=== PATIENT | male | born 1970 | race Caucasian/White ===

== ENCOUNTER → 2016-12-02 | Outpatient (CLI) | payer OTHER ==
[~2016-12-02] MED LIST: ATOR-24 PO; FLNIN NAE; LEVO1TAB35 PO; OMEG10007 PO; ONDA4TAB4 PO; OXYC1TAB3 PO; SERT1TAB71 PO
[2016-12-02 13:53] LABS: ALB/GLOB RATIO 1.2 (0.9-2); ALKALINE PHOSPHATASE 58 U/L (45-117); ALT/SGPT 41 U/L (12-78); AST/SGOT 25 U/L (15-37); BLOOD UREA NITROGEN 20 mg/dl (7-18); BUN/CREATININE RATIO 14.6 (10-20); CALCIUM 9.3 mg/dl (8.5-10.1); CARBON DIOXIDE 28 mmol/L (21-32); CHLORIDE 108 mmol/L (98-107); CHOLESTEROL 201 mg/dl (0-200); CHOLESTEROL/HDL RATIO 5.4; GLUCOSE 94 mg/dl (70-99); HDL CHOLESTEROL 37 mg/dl; LDL CHOLESTEROL CALCULATED 132 mg/dl; POTASSIUM 3.6 mmol/L (3.5-5.1); SODIUM 143 mmol/L (136-145); TRIGLYCERIDES 161 mg/dl (0-150); VERY LOW DENSITY LIPOPROT CALC 32 mg/dl
== END | disposition home or self-care (01) ==
LOC: C.LABPBG 07:43
PROVIDERS: ATTEND Nurse Practitioner Family
DX: E78.00 Pure hypercholesterolemia, unspecified (principal); R73.9 Hyperglycemia, unspecified; I10 Essential (primary) hypertension

== ENCOUNTER → 2017-06-11 | Outpatient (CLI) | payer OTHER ==
[2017-06-11 12:30] LABS: BASO % 1.1 %; BASO ABS # 0.07 K/uL (0-0.2); COMPLETE YES; EOS % 8.9 %; HEMATOCRIT 45.1 % (42-52); IG% 0.2 %; LYMPH % 32.4 %; LYMPH ABS # 1.99 K/uL (1.2-3.4); MEAN CORPUSCULAR HEMOGLOBIN 31.2 pg (25-34); MEAN CORPUSCULAR HGB CONC 33.9 g/dl (32-36); MEAN PLATELET VOLUME 10.4 fL (7.4-10.4); MONO % 9.4 %; PLATELET COUNT 333 K/uL (130-400); WHITE BLOOD COUNT 6.15 K/uL (4.8-10.8)
[2017-06-11 12:58] LABS: ALT/SGPT 28 U/L (12-78); BLOOD UREA NITROGEN 17 mg/dl (7-18); BUN/CREATININE RATIO 12.7 (10-20); CALCIUM 9.2 mg/dl (8.5-10.1); CARBON DIOXIDE 29 mmol/L (21-32); CHLORIDE 109 mmol/L (98-107); CHOLESTEROL 201 mg/dl (0-200); GLUCOSE 99 mg/dl (70-99); POTASSIUM 3.8 mmol/L (3.5-5.1); SODIUM 142 mmol/L (136-145); TRIGLYCERIDES 158 mg/dl (0-150); VERY LOW DENSITY LIPOPROT CALC 32 mg/dl
[2017-06-11 13:01] LABS: ALB/GLOB RATIO 1.1 (0.9-2); ALKALINE PHOSPHATASE 65 U/L (45-117); AST/SGOT 18 U/L (15-37); CHOLESTEROL/HDL RATIO 5.4; HDL CHOLESTEROL 37 mg/dl; LDL CHOLESTEROL CALCULATED 132 mg/dl
[2017-06-11 13:39] LABS: ESTIMATED AVERAGE GLUCOSE 108 mg/dl; HA1C FLAG Normal (Normal)
== END | disposition home or self-care (01) ==
LOC: C.LABPBG 09:31
PROVIDERS: ATTEND Nurse Practitioner Family
DX: F32.9 Major depressive disorder, single episode, unspecified (principal); E78.00 Pure hypercholesterolemia, unspecified; R73.9 Hyperglycemia, unspecified; K21.9 Gastro-esophageal reflux disease without esophagitis; I10 Essential (primary) hypertension

== ENCOUNTER → 2017-09-03 | Outpatient (CLI) | payer OTHER ==
[~2017-09-03] VITALS: Ht 170.2 cm; Wt 81.2 kg
[2017-09-03 14:37] VITALS: BP 147/88; PULSE 99; Ht 170.2 cm; Wt 81.2 kg
== END | disposition home or self-care (01) ==
LOC: C.NEUR 14:02
PROVIDERS: ATTEND Internal Medicine Pulmonary Disease
DX: R51 Headache (principal); I10 Essential (primary) hypertension; R06.83 Snoring; F32.9 Major depressive disorder, single episode, unspecified; K21.9 Gastro-esophageal reflux disease without esophagitis; R73.9 Hyperglycemia, unspecified

== ENCOUNTER → 2017-10-01 | Outpatient (CLI) | payer OTHER ==
--- NOTE | 2017-10-02 06:08 | PAP/PSG TECHNICIAN REPORT ---
[facility] Press Operator Meat Polysomnogram Report Study name: None Report date: 10/02/2017 Study date: 10/01/2017 Referring Physician: Oneil Hurst CRNP Name: GIANFRANCO ORTEGA Interpreting Physician: Ambrosio Du M.D. Date of : 1970 Press Operator Meat: Kailee Stinson, PSGT. Sex: Male Age: 46 StudyType: PSG Weight: 179 lbs Height: 46 years, Height 5' 7" Neck Circum:16 inches BMI: 28.03 Medications: Atrovastatin 80 mg, Fenofibrate 145 mg, Sertraline HCI 50 mg, Losartan Potassium 25 mg, Neomycin/Polymyxin HC 1% ear drops, as needed. Patient History 46 year old male here for a baseline sleep study to determine if SALLY is a factor for morning headaches, snoring and some dream enactment behavior's=6, Neck =16 inches. Room # 5. Parameters Monitored NPSG: E1-M2, E2-M1, Fp1-M2, Fp2-M1, F3-M2, F4-M2, F4-M1, C3-M2, C4-M2, C4-M1, O1-M2, O2-M2, O2-M1, T3-M2, T4-M1, P3-M2, P4-M1, CHIN1, CHIN2, HR, EKG, Legs, PFLOW, SNOR, FLOW, CFLOW, Tidal Volume, THOR, ABDO, SpO2, PLTH, CPRESS, ETCO2 Wave, ETCO2, pH Sleep Architecture Sleep Stages Time at Lights Off 10:59:10 PM STAGES Time (min.) TST (%) Time at Lights On 5:13:40 AM Wake 325.5 -- Total Recording Time (TRT) 374.50 min. N1 14.0 29 Total Sleep Period (TSP) 312.0 min. N2 21.5 44 Total Sleep Time (TST) 49.0min. N3 13.5 28 Awake Time 325.5 min. REM 0.0 0 Wake after Sleep Onset 279.0 min. Sleep Efficiency (SE) 13 % Sleep Onset Latency (TRISHA) 46.5 min. Number of Stage 1 Shifts None Awakenings 13 Stage Changes 33 Number of REM periods N/A REM 0.0 0 REM Latency NONE min. NREM 49.0 100 Body Position Analysis Supine Right Left Side Prone Vertical Total Sleep Time (min.) 232.7 23.5 3.5 26.97 35.1 6.2 Total Sleep Time (%) 42% 48% 7% 55 3% N/A% Total Sleep Time REM (min.) 0.0 0.0 0.0 None 0.0 0.0 Total Sleep Time NREM (min.) 20.5 23.5 3.5 None 1.5 0.0 Intermittent Wake (min.) 212.2 43.8 29.7 None 33.6 6.2 Total Sleep Period (%) 69% None None None None None Arousals Myoclonus (PLM) * Events Count Index Events Count Index Spontaneous 30 37 Events Awake (PLMW) 0 0.0 Respiratory 4 4.9 Events Asleep w/ Arousal (PLMA) 1 1.2 PLM 1 1 Events Asleep w/o Arousal (PLMS) 20 24.5 Snoring 2 2 Total Asleep 21 25.7 Total 37 45 Total 21 3 Respiratory Analysis * CA OA MA CH H RERA Total Count 0 0 0 0 12 0 12 Index 0.0 0.0 0.0 0 14.7 0 14.7 Mean Duration 0.0 0.0 0.0 0.00 15.0 0.0 15.0 Longest Duration 0.0 0.0 0.0 0.00 0.0 0.0 22.1 Respiratory Event Summary Total Supine ~Supine Right Left Prone REM NREM Apneas Count 0 0 0 0 0 0 N/A 0 Index 0.0 0 0 0.0 0.0 0 N/A 0 Hypopneas (4% Desat) Count 12 1 11 11 0 0 N/A 12 Index 14.7 2.9 23 28.1 0.0 0.0 N/A 14.7 Apneas & All Hypopneas Count 12 1 11 11 0 0 N/A 12 Index 14.7 3 23 28 0 0 N/A 14.7 Respiratory Events (Teacher Drama+All Hyp+RERA) Count 12 1 11 11 0 0 N/A 12 Index 14.7 3 23 28.1 0.0 0.0 N/A 14.7 Respiratory Related Arousal Count 4 1 3 3 0 0 N/A 4 Index 4.9 3 6 8 0 0 N/A 5 Snoring Analysis Supine Right Left Prone REM NREM Total Snore duration 0.6 min Snores count 12 11 0 0 N/A 23 23 Snore mean duration 1.6 Sec Snores index 35 28 0 0 N/A 28.2 28.2 TST with snoring (%) 1.3% Desaturation Event Summary: Minimum %SpO2 Event Count Mean/Min/Max Duration(sec.) Desaturation Index % Time In Bed > 90 16 23.9 / 10.0 / 58.8 2.8 94.9 86 - 90 1 13.3 / 13.3 / 13.3 3.3 5.1 81 - 85 0 N/A 0.0 0.0 76 - 80 0 N/A 0.0 0.0 71 - 75 0 N/A 0.0 0.0 66 - 70 0 N/A 0.0 0.0 61 - 65 0 N/A 0.0 0.0 56 - 60 0 N/A 0.0 0.0 51 - 55 0 N/A 0.0 0.0 < 50 0 N/A 0.0 0.0 Total REM NREM Awake <50% 0.0 min. 0.0 min. 0.0 min. 0.0 min. 51 - 60% 0.0 min. 0.0 min. 0.0 min. 0.0 min. 61 - 70% 0.0 min. 0.0 min. 0.0 min. 0.0 min. 71 - 80% 0.0 min. 0.0 min. 0.0 min. 0.0 min. 81 - 90% 18.5 min. 0.0 min. 4.7 min. 13.8 min. 91 - 100% 342.8 min. 0.0 min. 44.3 min. 298.5 min. Average 93 0 92 93 Minimum SpO2 84 N/A 84 84 Desaturation Event Index 2.6 0.0 19.6 0.0 # Desat. Events below 89% 10 N/A 10 0 Time(%) with Saturation below 89% 1.0 0.0 0.4 0.6 Time(min.) with Saturation below 89% 3.4 0.0 1.4 2.1 Time (mins) REM (mins) NREM (mins) % of TST SpO2 Below 90% 14 N/A N14 5.5 SpO2 Below 88% 4 0 0 1 Heart Rate Analysis Min (bpm) Max (bpm) Average (bpm) Awake 59 155 79 NREM 59 94 68 REM N/A N/A N/A Overall 59 94 68 Supplemental O2 Values Minimum O2 level: None Value Start Time End Time Press Operator Meat Comments PSG Study Mr. Ortega slept in the right, left, supine and prone positions. No cardiac arrhythmia or PLM's noted. No bruxism noted. Snoring was noted and scored as a 2 on a scale of 1 through 5. (0=no snoring, 5=snoring loud enough to be heard through a closed door or down the amanda way) awoke to use the restroom one times during the night. Mr. Ortega stated, I did not sleep as well as I do when I am in my own bed, I could not relax with the camera "watching me". The final report will be interpreted and signed by a sleep physician. The completed physician report will then be placed in the patient medical record. Patient did not sleep much, he stated that he could not relax with the camera on and the tech watching him. Therapy (cm H2O) 0 TIB (min.) 374.5 TST (min.) 49.0 Sleep Onset (min.) 46.5 REM Onset From Sleep (min.) NONE Sleep Efficiency % 13 Wakefulness (%) 87 Wakefulness (min.) 325.5 NREM 1 (%) 29 NREM 1 (min.) 14.0 NREM 2 (%) 44 NREM 2 (min.) 21.5 NREM 3 (%) 28 NREM 3 (min.) 13.5 REM (%) 0 REM (min.) 0.0 # Arousals 37 Arousal Index 45 # Snore 23 Snore Index 28.2 AHI 14.7 AHI Supine 3 AHI Non-Supine 23 NREM AHI 14.7 REM AHI N/A RDI 14.7 # Obstructive Apnea 0 # Central Apnea 0 # Mixed Apnea 0 # Hypopneas 12 RERAs 0 Total Respiratory Events 13 Time Below SpO2 89% (min.) 1.4 Mean NREM SpO2 (%) 92 Mean REM SpO2 (%) N/A Mean Sleep SpO2 (%) 92 Min NREM SpO2 (%) 84 Min REM SpO2 (%) N/A Position Supine (min.) 232.7 Position Non-supine (min.) 28.5 LM Index Sleep 25.7 LM Index NREM 25.7 LM Index REM N/A Mean Heart Rate (bpm) 68 Min Heart Rate (bpm) 59
--- NOTE | 2017-10-06 08:36 | POLYSOMNOGRAPH REPORT ---
CLINICAL DATA: A 46-year-old male with BMI of 28, referred by Oneil Hurst and myself for snoring, morning headaches, fatigue along with dream enactment behavior. SLEEP ARCHITECTURE: Total sleep period was 312 minutes. Total sleep time was only 49 minutes. This was all non-REM sleep. Sleep latency was 46.5 minutes. Wake after sleep onset was 279 minutes. Sleep consisted of stage N1 29%, stage N2 44% and stage N3 28%. AROUSAL DATA: 37 arousals were recorded for an index of 45 per hour. PERIODIC LIMB MOVEMENT DATA: 21 limb movements during sleep were noted for an index of 25.7 per hour with arousal index of 1.2 per hour. RESPIRATORY DATA: Mild sleep apnea was documented. The AHI was 14.7. There were 12 hypopneic episodes with a mean duration of 15 seconds. OXIMETRY DATA: Nocturnal hypoxemia was seen. Oxygen tyrese was 84%. Mean saturation was 93%. Time below 88% was 4 minutes. EKG: Heart rates ranged from 59-94 beats per minute. No arrhythmias were noted. ICER HAND'S COMMENTS: The patient slept in the left, right, supine and prone positions. Snoring was mild, rated 2 on a scale of 1-5. The patient stated that he could not sleep because he could not relax with the camera watching him. IMPRESSION: Very limited sleep study with only 49 minutes of sleep and no REM sleep was achieved. There were some hypopneic episodes recorded suggesting sleep apnea, although this data is not reliable because of the short length of sleep time. RECOMMENDATIONS: The patient may benefit from a home sleep apnea test.
== END | disposition home or self-care (01) ==
LOC: C.NEUR 21:00
PROVIDERS: ATTEND Internal Medicine Pulmonary Disease
DX: R06.83 Snoring (principal); R51 Headache; R53.83 Other fatigue; I10 Essential (primary) hypertension; Z68.28 Body mass index [BMI] 28.0-28.9, adult; F32.9 Major depressive disorder, single episode, unspecified; K21.9 Gastro-esophageal reflux disease without esophagitis; E78.00 Pure hypercholesterolemia, unspecified; E73.9 Lactose intolerance, unspecified

== ENCOUNTER → 2017-11-01 | Outpatient (CLI) | payer OTHER ==
--- NOTE | 2017-11-03 13:15 | POLYSOMNOGRAPH REPORT ---
CLINICAL DATA: A 46-year-old male with BMI of 28 referred by Oneil Hurst and Ann Hairston for a home sleep apnea test. He has a history of morning headaches, loud snoring and intermittent fatigue. He also moves his legs a lot at night. His snoring is much worse when he is on his back. An attempt was made to do an in-lab study but he only slept 49 minutes so a home sleep apnea test was performed. On the evening of 11/01/2017, a home sleep apnea test was performed using a [employer] type 3 monitor. RECORDING RESULTS: Total recording time was 9.7 hours. The patient's monitoring time and estimated sleep time was 8.6 hours. RESPIRATORY DATA: Moderate sleep apnea was documented. The PHOEBE was 18.5. There were 20 obstructive apneic episodes and 138 hypopneic episodes. The longest respiratory event was 35 seconds. OXIMETRY DATA: Nocturnal hypoxemia was seen. Oxygen tyrese was 84%. Mean saturation was 91%. Time below 89% was 22 minutes. HEART RATE DATA: Heart rates ranged from 52-65 beats per minute. SNORING DATA: Snoring was recorded throughout the night. IMPRESSION: Moderate sleep apnea/hypopnea with mild nocturnal hypoxemia. The patient's episodes of hypopnea and apnea were much more frequent when he was lying supine. RECOMMENDATIONS: The patient may benefit from use of an oral appliance, use of auto CPAP, repeat sleep study with CPAP, or possibly positional therapy. Clinical correlation is needed. [facility]
== END | disposition home or self-care (01) ==
LOC: C.NEUR 15:06
PROVIDERS: ATTEND Physician Assistant Medical
DX: R53.83 Other fatigue (principal); R51 Headache; R06.83 Snoring

== ENCOUNTER 2019-01-31 20:28 | Observation (INO) ==
[2019-01-31] MEDS ORDERED: MoRPHine SULFATE 2 MG/ML CARP IV STA ×2 (20:51→21:53)
--- NOTE | 2019-01-31 20:55 | Emergency Department Note ---
Entered by Allen Carver acting as a scribe for Robert Shah MD History of Present Illness General Chief complaint: Fall Stated complaint: fall ,flank pain Time Seen by Provider: 01/31/19 20:41 Source: patient History of Present Illness Onset (ago): hour(s) (1.5) Location: right (flank) Pain Consistency: + constant Current Pain Intensity: 6 Relieved By: + medication (Fentanyl prior to arrival) Exacerbated By: + other (deep breaths) Associated symptoms: no weakness The patient is a 48 year old male who presents to the Emergency Room with complaints of constant right flank pain after a mechanical fall occurring at 19:00, about 1.5 hours prior to arrival. The patient reports that he was on a ladder that was propped up against a different stepladder in the middle of his garage while changing a light bulb. He states that while descending the ladder it started to slide, and he fell about 5 feet and struck his right flank on a workbench. The patient reports that his pain is worsened with deep breaths and states I hear clicking when I breathe. He was given 100 mcg Fentanyl prior to arrival. He states that the pain medication improved his symptoms temporarily, but the pain is now returning. He rates his current discomfort at 6/10. He denies numbness, weakness, or leg pain. He denies significant abdominal pain but states my right abdomen feels big. He states that he is not on blood thinners. He takes medication for hypertension and high cholesterol. Home Medications Home Medications Medication Instructions Recorded Confirmed Type atorvastatin 80 mg tablet 80 mg PO HS #90 tab 01/24/19 01/31/19 History fenofibrate nanocrystallized 145 145 mg PO DAILY #90 tab 01/24/19 01/31/19 History mg tablet losartan 25 mg tablet 25 mg PO DAILY #90 tab 01/24/19 01/31/19 History sertraline 50 mg PO DAILY 01/31/19 01/31/19 History Allergies Allergy/AdvReac Type Severity Reaction Status Date / Time Sulfa (Sulfonamide Allergy Unknown Rash/Hives Verified 01/31/19 22:02 Antibiotics) levofloxacin [From Levaquin] AdvReac Unknown Myalgia Verified 01/31/19 22:02 HAYFEVER Allergy Unknown runny Uncoded 01/31/19 22:02 nose,cough Past Med/Surg History Medical History Depression (Acute) Gastroesophageal reflux disease (Acute) Hypercholesterolemia (Acute) Hyperglycemia (Acute) Hypertension (Acute) Obstructive sleep apnea hypopnea, moderate (Acute) Family History Other Diabetes Heart disease Hypertension Social History Feels Safe at Home: Yes Smoking Status: Never smoker Review of Systems See HPI for pertinent positives & negatives. and A total of 10 systems reviewed and were otherwise negative Physical Exam Vital Signs Vital Signs - 24 hr 01/31/19 20:34 01/31/19 21:53 01/31/19 22:46 Temperature 37.0 C Temperature Source Oral Sepsis Recent Fever Within 48 Hours No Sepsis Action Taken by Nursing No Action Required Pulse Rate 91 H Pulse Rate [Finger] 81 80 Respiratory Rate 22 24 26 H Respiratory Depth Shallow Blood Pressure 179/123 H Blood Pressure [Right Arm] 150/97 H 137/92 Blood Pressure Mean 141 Blood Pressure Mean [Right Arm] 114 107 Pulse Oximetry 93 93 94 Oxygen Delivery Method Room Air Room Air Room Air General: Non-ill appearing but mildly uncomfortable middle age male complaining of right flank pain. The patient is collared and boarded. HEENT: Normal cephalic atraumatic. Pupils are equal round and reactive to light. Extraocular movements are intact. Oropharynx is pink with moist mucous membranes. No swelling of the mouth lips or tongue. Neck: Supple with a midline trachea. No meningeal signs or stiffness, no JVD or bruits. No Stridor. Chest: Clear to auscultation bilaterally. No wheezes or rhonchi. No increased work of breathing. Heart: regular rate and rhythm. Abdomen: Soft nontender, nondistended without rebound guarding or rigidity. Extremities: No cyanosis clubbing or edema. No calf tenderness or asymmetry Spine/Back. The patient is mildly tender in the right flank. There is a bruise in that region from falling. Skin: Good turgor without rashes. Neurologic exam: Cranial nerves two through 12 are intact. Motor and sensation are intact and symmetrical throughout. Course 2043: The patient was evaluated in room A4B. A complete history and physical examination were performed. 2150: I checked on the patient. He is requesting additional pain medication. 2209: I updated the patient on results. I removed the patients board. 2217: I consulted Dr. Castelan Thoracic Surgery. He recommends admission to the hospital for pain management, and he will see the patient in the morning. He would like a chest x-ray in the morning. 2220: I updated the patient on the current plan. 2225: I consulted Dr. Mancilla [facility] Hospitalist. The patient will be reevaluated for hospitalization. Administered Medications Ioversol (Optiray 320 100ml) 89 ml IV ONCE PRN PRN Reason: Interaction Checking Stop: 02/04/19 21:42 Last Admin: 01/31/19 21:43 Dose: 89 ml Documented by: [id number] Discontinued Medications Ketorolac Tromethamine (Toradol) 30 mg IV NOW ONE Stop: 01/31/19 22:15 Last Admin: 01/31/19 22:45 Dose: 30 mg Documented by: [id number] Morphine Sulfate (Morphine Sulfate) 2 mg IV NOW STA Stop: 01/31/19 20:52 Last Admin: 01/31/19 21:01 Dose: 2 mg Documented by: [id number] Morphine Sulfate (Morphine Sulfate) 2 mg IV NOW STA Stop: 01/31/19 21:54 Last Admin: 01/31/19 21:57 Dose: 2 mg Documented by: [id number] Medical Decision Making Differential Diagnosis Differential diagnosis: traumatic injuries, rib fracture, pneumothorax, kidney injury, spine injury Medical Records Attestation: I reviewed the patient's medical records. Home Medications Current Medication List: was personally reviewed by me Laboratory Data Attestation: I reviewed the patient's lab results. Lab Results 01/31/19 Range/Units 21:07 POC Hgb 13.6 L (14.0-18.0) g/dl POC Hct 40 L (42-52) % POC Sodium 144 (135-144) mEq/L POC Potassium 3.9 (3.3-5.0) mEq/L POC Chloride 107 (101-112) mEq/L POC Total CO2 25 (24-31) mEq/l POC Anion Gap 17.0 (16-25) mmol/L POC BUN 21 H (7-18) mg/dl POC Creatinine 1.3 (0.6-1.3) mg/dl POC Glucose (other) 124 H (70-99) mg/dl POC Ioniz Calcium Berna 1.20 (1.12-1.32) mmol/l Imaging Data Radiologist's Impression: Radiology results as stated below per my review and the radiologist's interpretation: CT abd pelvis IV con only CT DOSE: 1152.27 mGy.cm HISTORY: Trauma. Pain. rt flank pain, fell from ladder TECHNIQUE: Multiaxial CT images of the abdomen and pelvis were performed following the use of intravenous contrast. A dose lowering technique was utilized adhering to the principles of ALARA. COMPARISON STUDY: None. FINDINGS: Minimal basilar parenchymal contusions/atelectasis. 4 cm upper pole left hepatic cyst. Liver spleen and pancreas are otherwise uniform. Nondisplaced cortical fractures right 10th and 11th ribs posteriorly. Kidneys enhance uniformly. No evidence for hydronephrosis. Mild scattered chronic colonic diverticulosis. No evidence for acute diverticulitis. Bladder is midline. There is no free fluid within the pelvic cul-de-sac cul-de-sac. IMPRESSION: 1. Posterior fractures of the right 10th and 11th ribs. 2. Minimal/mild bibasilar parenchymal contusion/atelectasis. 3. No additional acute abnormality of the abdomen or pelvis. 4. Chronic changes as noted. The above report was generated using voice recognition software. It may contain grammatical, syntax or spelling errors. Electronically signed by: Pancho Cardona M.D. 01/31/2019 9:[address] chest w con CT DOSE: HISTORY: Trauma eval for trauma. rt flank pain fall from ladder TECHNIQUE: Multiaxial CT images of the chest were performed following the intravenous administration of contrast. A dose lowering technique was utilized adhering to the principles of ALARA. COMPARISON: None. FINDINGS: Lungs demonstrate mild posterior parenchymal contusions bilaterally. Mediastinal and hilar regions are unremarkable. The thoracic aorta is normal in course and caliber. There is no evidence of pneumothorax. Evaluation of bony structures demonstrates fractures of the posterior right 10th and 11th ribs. No evidence pneumothorax. Ribs. IMPRESSION: 1. Mild posterior bilateral parenchymal contusions. 2. Nondisplaced fractures posterior right 10th and 11th ribs. 3. No evidence for pneumothorax. The above report was generated using voice recognition software. It may contain grammatical, syntax or spelling errors. Electronically signed by: Pancho Cardona M.D. 01/31/2019 9:56 PM Blood Pressure Blood Pressure Findings: Elevated blood pressure Blood Pressure Disposition: further management by hospitalist [facility] Narrative This patient comes in as described above he suffered a mechanical fall and fell about 5 feet on his right flank he has pain in this area. He has no head trauma or neck pain. I did remove the collar. He has no neurologic deficits. His abdomen is nontender. Given his mechanism of injury and his pain I was worried about traumatic chest, abdominal, and spinal injuries. He has received 100 mcg of fentanyl IV prior to arrival he said the pain is starting to come back so I did give him additional morphine just 2 mg IV. I did order an i-STAT as well as a CAT scan of the abdomen and pelvis. He was reassessed frequently. He did require additional IV morphine. CAT scan of the chest abdomen and pelvis did show 2 rib fractures on the right posterior 10th and 11th ribs. He also has mild posterior bilateral parenchymal contusions. No pneumothorax. I do think he needs to be admitted/observed for pain management and further evaluation. I think the likelihood of the pulmonary contusions causing problems is small but that would also warrant observation. I did discuss case with Dr. Chiu, who is the cardiothoracic surgeon, he agrees and will see the patient in the morning. I then discussed the case with Dr. Mancilla, the [facility] hospitalist. She will see the patient in the ER. Impression & Plan Multiple rib fractures, Pulmonary contusion, Intractable pain, Fall from ladder Discharge Plan Visit Data Chief Complaint: Fall Stated Complaint: fall ,flank pain ED Provider: Robert Shah Discharge Problem: Multiple rib fractures, Pulmonary contusion, Intractable pain, Fall from ladder Patient Disposition: Being Evaluated by Hospitalist Forms Stand Alone Forms: My [facility] Qik Prescriptions Prescriptions: No Action fenofibrate nanocrystallized 145 mg tablet 145 mg PO DAILY Qty: 90 RF: 0 atorvastatin 80 mg tablet 80 mg PO HS Qty: 90 RF: 0 losartan 25 mg tablet 25 mg PO DAILY Qty: 90 RF: 0 sertraline 50 mg tablet 50 mg PO DAILY RF: 0 Referrals Referrals: Oneil Hurst III, CRNP [Primary Care Provider] - The scribe's documentation has been prepared under my direction and personally reviewed by me in its entirety. I confirm that the note above accurately reflects all work, treatment, procedures, and medical decision making performed by me.
[2019-01-31 21:20] LABS: iSTAT Creatinine 1.3 mg/dl (0.6-1.3); iSTAT Hemoglobin 13.6 g/dl (14.0-18.0); iSTAT Ionized Calcium 1.2 mmol/l (1.12-1.32); iSTAT Potassium 3.9 mEq/L (3.3-5.0)
[2019-01-31] MEDS ORDERED: IOVERSOL 100ml IV PRN (21:43)
--- NOTE | 2019-01-31 21:59 | CT Scan Report ---
CT chest w con CT DOSE: HISTORY: Trauma eval for trauma. rt flank pain fall from ladder TECHNIQUE: Multiaxial CT images of the chest were performed following the intravenous administration of contrast. A dose lowering technique was utilized adhering to the principles of ALARA. COMPARISON: None. FINDINGS: Lungs demonstrate mild posterior parenchymal contusions bilaterally. Mediastinal and hilar regions are unremarkable. The thoracic aorta is normal in course and caliber. There is no evidence of pneumothorax. Evaluation of bony structures demonstrates fractures of the posterior right 10th and 11th ribs. No ev idence pneumothorax. Ribs. IMPRESSION: 1. Mild posterior bilateral parenchymal contusions. 2. Nondisplaced fractures posterior right 10th and 11th ribs. 3. No evidence for pneumothorax. The above report was generated using voice recognition software. It may contain grammatical, syntax or spelling errors. Electronically signed by: Pancho Cardona M.D. 01/31/2019 9:56 PM
--- NOTE | 2019-01-31 22:01 | CT Scan Report ---
CT abd pelvis IV con only CT DOSE: 1152.27 mGy.cm HISTORY: Trauma. Pain. rt flank pain, fell from ladder TECHNIQUE: Multiaxial CT images of the abdomen and pelvis were performed following the use of intrave nous contrast. A dose lowering technique was utilized adhering to the principles of ALARA. COMPARISON STUDY: None. FINDINGS: Minimal basilar parenchymal contusions/atelectasis. 4 cm upper pole left hepatic cyst. Live r spleen and pancreas are otherwise uniform. Nondisplaced cortical fractures right 10th and 11th ribs posteriorly. Kidneys enhance uniformly. No e vidence for hydronephrosis. Mild scattered chronic colonic diverticulosis. No evidence for acute diverticulitis. Bladder is midli ne. There is no free fluid within the pelvic cul-de-sac cul-de-sac. IMPRESSION: 1. Posterior fractures of the right 10th and 11th ribs. 2. Minimal/mild bibasilar parenchymal contusion/atelectasis. 3. No additional acute abnormality of the abdomen or pelvis. 4. Chronic changes as noted. The above report was generated using voice recognition software. It may contain grammatical, syntax or spelling errors. Electronically signed by: Pancho Cardona M.D. 01/31/2019 9:59 PM
[2019-01-31] MEDS ORDERED: KETOROLAC 30 MG/ML VIAL IV ONE (22:14)
--- NOTE | 2019-02-01 00:35 | History & Physical Report ---
Date of Service February 01, 2019 Assessment & Plan (1) Multiple rib fractures: 48-year-old male was admitted on 01 February 2019 for right posterior rib fractures, parenchymal contusions, and pain control. Right rib fractures, pulmonary contusion: Following a mechanical fall just prior to ED arrival on . No other reported associated injuries or acute patient concerns. - In the ED, afebrile, not tachycardic, was briefly quite hypertensive, and had normal-lower room SpO2. POC hemoglobin 13.6. CT chest with contrast noted non- displaced posterior fractures of the right 10th and 11th ribs without evidence of pneumothorax. Positive mild bilateral parenchymal contusions. CT abdomen pelvis with IV contrast only noted these rib fractures without acute additional abnormalities. - In ED was treated with morphine and Toradol. - Will continue as needed Toradol and morphine. Encourage IS use. Recheck chest x-ray and H/H in the a.m. Consulted thoracic surgery for their evaluation. - Held his CPAP for overnight. Recommended discussion with surgery about its use in setting of pulmonary contusions. Incidental CT a/p findings: - 4 cm upper pole left hepatic cyst [patient mentions this may be an old finding]. - Mild scattered chronic colonic diverticulosis. [Recommended patient have a routine screening colonoscopy.] Ongoing medical issues: - Hypertension, hypercholesterolemia: Continue home losartan, atorvastatin, fenofibrate. - Depression: Continue home sertraline. - Elevated creatinine: Admit POC Cr 1.3. Similar to prior. - SALLY: Usually uses CPAP nightly. Code status: Full code. Diet: Regular. DVT prophy: SCDs and ambulation. PT/OT: Deferred. Disbo: Admit to [facility] for observation. (2) Pulmonary contusion: (3) Hepatic cyst: (4) Diverticulosis: (5) Hypertension: (6) Hypercholesterolemia: (7) Depression: (8) Elevated serum creatinine: (9) Obstructive sleep apnea hypopnea, moderate: History of Present Illness Primary Care Provider: Oneil Hurst III, BOILER ATTENDANT 48-year-old male says that he suffered a mechanical fall around 7 PM on 01 January 2019 (evening of admission) from a ladder in his garage when changing a light bulb. He struck his right flank on a work bench during the fall. He denies any head injuries or loss of consciousness. Presently complains of local right lower rib and flank pain, worse with deep breaths. Initially he had complained that his abdomen felt "big" but at the time of this H&P patient was not concerned about the same. He denies any present anterior chest pain, shortness of breath, anterior abdominal pain, or any other acute concerns. - Past medical history includes hypertension, hyperlipidemia, hyperglycemia, depression, SALLY, question of hepatic cyst. - Patient denies any significant past surgical history. - Social history includes denying tobacco use. Uses alcohol couple times a week. Lives at home. Allergies Allergy/AdvReac Type Severity Reaction Status Date / Time Sulfa (Sulfonamide Allergy Unknown Rash/Hives Verified 01/31/19 22:02 Antibiotics) levofloxacin [From Levaquin] AdvReac Unknown Myalgia Verified 01/31/19 22:02 HAYFEVER Allergy Unknown runny Uncoded 01/31/19 22:02 nose,cough Home Medications Home Medications Medication Instructions Recorded Confirmed Type atorvastatin 80 mg tablet 80 mg PO HS #90 tab 01/24/19 01/31/19 History fenofibrate nanocrystallized 145 145 mg PO DAILY #90 tab 01/24/19 01/31/19 History mg tablet losartan 25 mg tablet 25 mg PO DAILY #90 tab 01/24/19 01/31/19 History sertraline 50 mg PO DAILY 01/31/19 01/31/19 History Past Med/Surg History Medical History Depression (Acute) Gastroesophageal reflux disease (Acute) Hypercholesterolemia (Acute) Hyperglycemia (Acute) Hypertension (Acute) Obstructive sleep apnea hypopnea, moderate (Acute) Family History Other Diabetes Heart disease Hypertension Social History Feels Safe at Home: Yes Smoking Status: Never smoker Review of Systems Review of Systems: Constitutional: Denies fevers, chills, focal weakness Eyes: Denies any visual loss or diplopia ENT: Denies any ear/nose/throat pain or difficulty speaking or swallowing Respiratory: Denies any dyspnea, cough, hemoptysis Cardiovascular: Denies any chest pain or feeling of edema Gastrointestinal: Denies any abdominal pain, nausea/vomiting/diarrhea Musculoskeletal: Denies any acute extremity pains, myalgias, or focal weakness. Positive right costal pain. Skin: Positive abrasions from the fall. Otherwise no acute rashes. Neuro: Denies any headache, acute focal weakness or numbness, or difficulties with speech or swallow. Physical Exam Physical Exam: GENERAL: Awake, alert, well-appearing, in no acute distress HENT: Normocephalic, atraumatic. Oropharynx unremarkable. EYES: Normal conjunctiva. Sclera non-icteric. NECK: Inspection normal. Non-tender. Supple and full ROM. No nuchal rigidity. Chest: There is a linear contusion and abrasion over the right lateral / axillary chest wall along the lower ribs. CARDIAC: +S1S2 RRR, no murmurs. RESPIRATORY: Clear to auscultation. No wheezes or rales. Normal (but a bit mor e painful) respiratory effort. GI: +BS, soft, non-distended. No tenderness to palpation. No rebound or guarding. EXTREMITIES: No pedal edema or calf tenderness. Moving all extremities naturally and easily. NEURO: No gross neuro deficits. Results & Data Vital Signs (Past 12 Hours) Vital Signs Temp Pulse Pulse Resp BP BP Pulse Ox 02/01/19 00:21 88 20 137/86 94 01/31/19 22:46 80 26 H 137/92 94 01/31/19 21:53 81 24 150/97 H 93 01/31/19 20:34 37.0 C 91 H 22 179/123 H 93 Laboratory Results 01/31/19 Range/Units 21:07 POC Hgb 13.6 L (14.0-18.0) g/dl POC Hct 40 L (42-52) % POC Sodium 144 (135-144) mEq/L POC Potassium 3.9 (3.3-5.0) mEq/L POC Chloride 107 (101-112) mEq/L POC Total CO2 25 (24-31) mEq/l POC Anion Gap 17.0 (16-25) mmol/L POC BUN 21 H (7-18) mg/dl POC Creatinine 1.3 (0.6-1.3) mg/dl POC Glucose (other) 124 H (70-99) mg/dl POC Ioniz Calcium Berna 1.20 (1.12-1.32) mmol/l Medications Administered Ioversol (Optiray 320 100ml) 89 ml IV ONCE PRN PRN Reason: Interaction Checking Stop: 02/04/19 21:42 Last Admin: 01/31/19 21:43 Dose: 89 ml Documented by: [id number] Discontinued Medications Ketorolac Tromethamine (Toradol) 30 mg IV NOW ONE Stop: 01/31/19 22:15 Last Admin: 01/31/19 22:45 Dose: 30 mg Documented by: [id number] Morphine Sulfate (Morphine Sulfate) 2 mg IV NOW STA Stop: 01/31/19 20:52 Last Admin: 01/31/19 21:01 Dose: 2 mg Documented by: [id number] Morphine Sulfate (Morphine Sulfate) 2 mg IV NOW STA Stop: 01/31/19 21:54 Last Admin: 01/31/19 21:57 Dose: 2 mg Documented by: [id number] Code Status & VTE Plan Code Status Full code VTE Prophylaxis Plan VTE Prophylaxis will be ordered: Yes Supervising Physician Co-Signing Physician Notes Patient seen and examined, chart reviewed, case discussed with Dr. Jiang and I agree with his assessment and plan as documented above. Briefly, patient is a 48yo male s/p fall from 5 foot ladder with trauma to right flank/back. Patient with posterior fractures of 10th and 11th ribs on right, mild bilateral pulmonary contusions. On exam he is afebrile, hemodynamically stable, no respiratory distress HEENT: NC/AT, PERRL, MMM, neck supple Heart: +S1/S2, regular, no m/r/g Lungs: CTA, no rales/rhonchi/wheezes, pain with deep inspiration, bruise on right back, no crepitus, no flail Abd: +BS, soft, NT/ND Ext: no edema Labs and images reviewed Assessment/Plan: -Observation to medical floor, closely monitor respiratory status -Pain control, Toradol PRN -CXR in AM to assess for progression of pulmonary contusions -Consult Dr. Castelan for further assessment -Remainder of plan as above PG Care Time/CCT Total # of Minutes Spent Total Time Spent with Patient: Total time spent is greater than 50% in coordination of care (as documented) at patient's floor/unit and/or counseling patient: Resident Activity Tracking Resident Involvement: Resident Care Provided Care Provided: Adult Hospital Medicine (1) Multiple rib fractures Encounter type: initial encounter Fracture type: closed Laterality: right Qualified Code(s): S22.41XA - Multiple fractures of ribs, right side, initial encounter for closed fracture (2) Pulmonary contusion Encounter type: initial encounter Laterality: bilateral Qualified Code(s): S27.322A - Contusion of lung, bilateral, initial encounter
[2019-02-01] MEDS ORDERED: ONDANSETRON INJ 2 MG/ML 2 ML VIAL IV PRN (02:12)
[2019-02-01] MEDS ORDERED: MoRPHine SULFATE 4 MG/ML 1 ML CARP\\VIAL IV PRN (02:12)
[2019-02-01] MEDS: KETOROLAC 30 MG/ML VIAL IV PRN ×2 (04:52→12:11)
[2019-02-01 06:42] LABS: Hematocrit (blood only) 40.1 % (42-52); Hemoglobin 13.7 g/dL (14.0-18.0)
[2019-02-01] MEDS ORDERED: ACETAMINOPHEN 325 MG TAB PO SCH (07:30)
--- NOTE | 2019-02-01 07:57 | Consultation Report ---
DATE OF CONSULTATION: 02/01/2019 REASON FOR CONSULTATION: Rib fractures and lung contusion. HISTORY OF PRESENT ILLNESS: This is a 48-year-old male who was in his usual state of good health when he was in his garage last evening standing on an unstable ladder changing a light bulb when the ladder fell over. The patient says that he subsequently fell on the top of a work bench striking the posterior lateral side of his right lower ribs. He says the patient immediately had a significant amount of pain, so he called an ambulance and ultimately presented to [facility]. Upon arrival to the Emergency Department, the patient did have labs checked where he was noted to have a white blood cell count, hemoglobin, hematocrit and platelet count all within the normal range. He did have a chemistry profile where sodium and potassium were noted to be normal. His BUN had a slight elevation at 21 and his creatinine was 1.3. Imaging studies were undertaken and the patient did have a CT scan of his chest where he was noted to have some bilateral parenchymal contusions at the lung bases and nondisplaced rib fractures of the posterior 10th and 11th ribs in the right side. There was no pneumothorax. CT scan of his abdomen and pelvis was also undertaken and there were no abdominal or pelvic injuries noted. The basilar lung contusions and rib fractures as noted above were noted on this study as well. The patient was admitted for pain control issues. I did question the patient if he has fallen, he says he merely lost his balance and he admits that he did not have the ladder in the most stable position. He denies any lightheadedness or dizziness prior to falling. He did not have any preceding shortness of breath or chest pain. The patient says that he did not strike his head or lose consciousness and currently does not have any headache or diplopia. He denies any epistaxis and says that he did not strike his face. He does not note any sore throat. He does not note any neck pain. He does not have any chest pain. He is not short of breath, but does admit that he does have some difficulty taking deep breaths due to pain, most pronounced on the right side where his rib fractures are. He denies any fever, shakes, or chills. He does not have any abdominal pain or nausea, vomiting. He denies any dysuria or hematuria. He has no history of DVT or PE. He denies any pain in his extremities. He denies any history of stroke, seizure or transient ischemic attack. He has no history of DVT or PE. At the time of my exam, the patient was resting comfortably in bed as he notes that the pain medicines that have been administered have been effectively controlling his pain. PAST SURGICAL HISTORY: Includes the followin. Hypertension. 2. Hypercholesterolemia. 3. Depression. 4. GERD. SOCIAL HISTORY: He is a lifetime nonsmoker. He works in an office. FAMILY HISTORY: Positive for hypertension. ALLERGIES: HE HAS LISTED ALLERGIES TO SULFA AND LEVAQUIN as well as hay fever. HOME MEDICATIONS: Include: 1. Lipitor 80 mg daily. 2. Fenofibrate 145 mg daily. 3. Losartan 25 mg daily. 4. Zoloft 50 mg daily. REVIEW OF SYSTEMS: As described above. PHYSICAL EXAMINATION: VITAL SIGNS: The patient's blood pressure is 165/93, pulse 81 and regular, respirations are 16 and unlabored, his temperature is 37.1 which is afebrile, his pulse ox is 95% on room air. GENERAL: He is alert. He is oriented x3. He is in no distress. HEENT: Head appears atraumatic, normocephalic. Eyes: Pupils equal, round, reactive to light and accommodation. His extraocular motions are intact. Ears: Auditory acuity is grossly intact. Nose: Nasal patency appeared intact. There are no signs of nasal trauma. His mouth is moist without exudates. His dentition appeared to be in good repair. NECK: Supple without tracheal shift or stridor. CARDIOVASCULAR: Regular rate and rhythm. LUNGS: Revealed decreased breath sounds at the bases and his respiratory effort was somewhat limited due to pain. His chest wall was examined and there was a contusion on the right posterior lateral aspect of his chest wall. ABDOMEN: The patient's back was palpated from the cervical spine to the sacrum and there were no masses, spasms, crepitus, tenderness or defects. EXTREMITIES: Revealed no gross orthopedic abnormalities. There was no cyanosis or clubbing. NEUROLOGIC: Revealed cranial nerves II through XII are grossly intact. He can move all 4 extremities without focal deficits. DIAGNOSTIC DATA: As noted above. IMPRESSION: A 48-year-old male status post fall with resultant rib fractures and pulmonary contusion as noted above. PLAN: Discussed in great detail with the patient the mainstays of treatment of rib fractures and pulmonary contusion. I discussed with him that we need to make sure he has adequate pain control, so that he can take deep breaths thereby minimizing his chance of obtaining a pneumonia. He has an incentive spirometer at bedside and I did instruct him that he needs to use this several times per hour. I also discussed with him the importance of early ambulation. While the patient is in the hospital, he can merely be followed with serial chest x-rays to see if he has any worsening pulmonary contusion, and at the present time, he does have adequate oxygenation on room air. There was no evidence of pneumothorax on his imaging. This can also be followed for development of this with serial chest x-rays. He also does not have any significant pleural effusion which again could also be followed with serial chest x-rays to see if this develops. I feel once the patient has adequate pain control with oral medicines, he can be discharged home. At time of discharge, our office will call him for a followup appointment in 1-2 weeks. We will of course have him get a chest x-ray prior to his followup appointment. At the present time, the patient does have as needed morphine and Toradol ordered for pain control. I would recommend placing the patient on scheduled Tylenol, which he should be discharged home with his well and I will order this. I also told them that at time of discharge, he can take ibuprofen on a scheduled basis. At the time of discharge, I would recommend him taking scheduled ibuprofen and Tylenol and then he should also be provided with a mild narcotic pain medication to be used on an as-needed basis. We will follow with the patient while he is in the hospital, but again, however, once he has adequate pain control on oral medications, he can probably be discharged home safely.
--- NOTE | 2019-02-01 08:31 | XRay Report ---
XR chest 2V routine HISTORY: 48 years-old Male f/u rib fractures and pulm contusions acute atypical chest pain with righ t-sided chest fractures COMPARISON: Chest CT 01/31/2019, CT abdomen and pelvis 04/07/2013. TECHNIQUE: PA and lateral views of the chest FINDINGS: Cardiomediastinal and hilar silhouettes appear unchanged. Acute fractures of the posterior right 10th and 11th ribs redemonstrated with additional slightly displaced fracture about the lateral right clint th rib.. There is mild right hemidiaphragmatic elevation. Subsegmental left basilar opacities suggest atelectasis. No pneumothorax, overt pulmonary edema or large pleural effusion. Slight anterior wedgi ng noted about the L1 vertebral body, unchanged. Mild degenerative changes of the shoulders. IMPRESSION: 1. Acute fractures of the right ninth, tenth and eleventh ribs without pneumothorax. 2. Subsegmental left basilar opacities suggest atelectasis. The above report was generated using voice recognition software. It may contain grammatical, syntax o r spelling errors. Electronically signed by: Addison Vasquez M.D. 02/01/2019 8:30 AM
[2019-02-01] MEDS ORDERED: LOSARTAN POTASSIUM 25 MG TAB PO SCH (09:00)
[2019-02-01] MEDS ORDERED: SERTRALINE HCL 50 MG TABLET PO SCH (09:00)
[2019-02-01] MEDS ORDERED: FENOFIBRATE NANOCRYSTALLIZED 145 MG TABLET PO SCH (09:00)
--- NOTE | 2019-02-01 10:06 | Consultation Report ---
DATE OF CONSULTATION: 02/01/2019 Mr. Ortega is a 48-year-old male who stands 5 feet 7 inches tall and weighs about almost 190 pounds who slipped and fell while changing a light bulb and suffered fractured ribs. He has difficulty with pain control, so he is admitted to the medical service. I was not particularly impressed with his CT scan. I was also not impressed with his x-ray this morning and the fact that he had no pneumothorax and no pleural effusions. At this point, this is going to be a matter of pain control. For specifics of this consultation, please see Mr. Nick Betts's note.
--- NOTE | 2019-02-01 16:43 | Discharge Summary ---
Date of Service February 01, 2019 Admission HPI Per Admitting Provider 48-year-old male says that he suffered a mechanical fall around 7 PM on 01 January 2019 (evening of admission) from a ladder in his garage when changing a light bulb. He struck his right flank on a work bench during the fall. He denies any head injuries or loss of consciousness. Presently complains of local right lower rib and flank pain, worse with deep breaths. Initially he had complained that his abdomen felt "big" but at the time of this H&P patient was not concerned about the same. He denies any present anterior chest pain, shortness of breath, anterior abdominal pain, or any other acute concerns. - Past medical history includes hypertension, hyperlipidemia, hyperglycemia, depression, SALLY, question of hepatic cyst. - Patient denies any significant past surgical history. - Social history includes denying tobacco use. Uses alcohol couple times a week. Lives at home. Admission Exam Per Admitting Provider GENERAL: Awake, alert, well-appearing, in no acute distress HENT: Normocephalic, atraumatic. Oropharynx unremarkable. EYES: Normal conjunctiva. Sclera non-icteric. NECK: Inspection normal. Non-tender. Supple and full ROM. No nuchal rigidity. Chest: There is a linear contusion and abrasion over the right lateral / axillary chest wall along the lower ribs. CARDIAC: +S1S2 RRR, no murmurs. RESPIRATORY: Clear to auscultation. No wheezes or rales. Normal (but a bit more painful) respiratory effort. GI: +BS, soft, non-distended. No tenderness to palpation. No rebound or guarding. EXTREMITIES: No pedal edema or calf tenderness. Moving all extremities naturally and easily. NEURO: No gross neuro deficits. Principal Diagnosis Acute Posterior, non-displaced fractures of 10th and 11th right ribs Discharge Exam GENERAL: Awake, alert, well-appearing, in no acute distress Chest: There is a linear contusion and abrasion over the right lateral / axillary chest wall along the lower ribs. CARDIAC: Heart Sounds dual no mururs rubs skips or gallops RESPIRATORY: Clear to auscultation. No wheezes or rales. Normal respiratory effort. GI: +BS, soft, non-distended. No tenderness to palpation. No rebound or guarding. EXTREMITIES: No pedal edema or calf tenderness. Moving all extremities naturally and easily. NEURO: No gross neuro deficits. MSK: Ambulating well Discharge Data Allergies Allergy/AdvReac Type Severity Reaction Status Date / Time Sulfa (Sulfonamide Allergy Unknown Rash/Hives Verified 01/31/19 22:02 Antibiotics) levofloxacin [From Levaquin] AdvReac Unknown Myalgia Verified 01/31/19 22:02 HAYFEVER Allergy Unknown runny Uncoded 01/31/19 22:02 nose,cough Consultations 01/31/19 22:20 ED Decision to Admit Stat 02/01/19 02:12 Consult Thoracic Surgery Routine Ordered Studies 01/31/19 20:49 CT abd pelvis IV con only Stat CT chest w con Stat Hospital Course (1) Multiple rib fractures: 48-year-old male who had an accidental fall was admitted on 01 February 2019 for right posterior rib fractures, parenchymal contusions, and pain control. Rib Fractures sec to accidental fall CT showing non displaced fractures of 10th and 11th ribs as well as bilateral small pulmonary contusion injury Patient's pain well controlled with toradol and tylenol Was ambulating and expanding chest well Participated with Incentive spirometry Discharged pain regime tylenol and ibuprofen Will get follow up CXR as an outpatient and follow up with CT surg in one week. Incidental CT a/p findings: - 4 cm upper pole left hepatic cyst [patient mentions this may be an old finding]. - Mild scattered chronic colonic diverticulosis. [Recommended patient have a routine screening colonoscopy.] (2) Pulmonary contusion: (3) Hepatic cyst: (4) Diverticulosis: (5) Hypertension: (6) Hypercholesterolemia: (7) Depression: (8) Elevated serum creatinine: (9) Obstructive sleep apnea hypopnea, moderate: Total Time Total Time Spent Total Time Spent (In Minutes): 40 Discharge Plan Discharge Items Patient Disposition: Home - Self-Care Reason For Visit: RIGHT 10TH AND 11TH RIB FX, PULMONARY CONTUSION Discharge Diagnosis: Rib Fracture Discharge Goals: Decrease discomfort and Prevent disease Activity: Per 'Additional Instructions' section Non-emergency contact: Primary Care Provider Call non-emergency contact if: you have any medication questions, your symptoms worsen, your pain is not controlled and your temperature is above 100.5 Follow-up/Referrals: Oneil Hurst III, CRNP [Primary Care Provider] - 02/10/19 9:15 am (Please, follow up at Oneil Hurst's office with his associate, Myranda MATTSON, on WednesdayFebruary 10 at 9:15 am. *If you need to change this appointment, call their office at [phone].) Diet: Regular Addtl Provider Instructions: Mr. Ortega, it was our pleasure to treat you for your rib fractures here at [facility]. Like we discussed earlier it will be important for you to continue breathing deeply and aerating your lungs to prevent an infection developing. You have a bruise on your lungs, but there is no evidence of any fluid, congestion or loss of function. You will be followed up in about a week with cardiothoracic surgery and get an chest x ray as an outpatient to monitor for any issues that may arise. If you have worsening shortness of breath please return to medical care sooner than that. Prescriptions: Continued fenofibrate nanocrystallized 145 mg tablet 145 mg PO DAILY Qty: 90 RF: 0 atorvastatin 80 mg tablet 80 mg PO HS Qty: 90 RF: 0 losartan 25 mg tablet 25 mg PO DAILY Qty: 90 RF: 0 sertraline 50 mg tablet 50 mg PO DAILY RF: 0 Stand-Alone Forms: My [facility] [employer], [facility] [employer]/Other Patient Handouts: Fx Rib, Coughing Techniques Dc Discharge Orders: Discharge Order (Routine); Ordered 02/01/19 Ordered By: Pablito Almanza Admission Data Admit Date/Time: 02/01/19 00:26 Attending Provider: Shanna Castañeda Admit Provider: Addison Jiang Primary Care Provider: Oneil Hurst III Other Providers: Aishwarya Mancilla Joseph D. Service: Surgical Services Other Interventions: Discharge Summary Assessment (RN) Last Done: 02/01/19 10:46 DC Date/Time DO NOT enter until pt leaves facility: 02/01/19 13:18 Supervising Physician Co-Signing Physician Notes Resident Physician Supervision Note: I independently interviewed and examined the patient and verified the franco history and physical, reviewed labs and image studies, discussed the case with the resident and agree with the findings and care plan. Resident Activity Tracking Resident Involvement: Resident Care Provided Care Provided: Adult Hospital Medicine
[2019-02-01] MEDS ORDERED: ATORVASTATIN 40 MG TAB PO SCH (21:00)
== END 2019-02-01 13:18 | disposition home or self-care (01) ==
LOC: 3E 20:28 → ED 20:28 → SUATTDRO 02-01 00:26 → 3E 02-01 01:21